=== PATIENT | male | born 1975 ===

== ENCOUNTER 2022-03-19 11:54 | Emergency (ER) | payer OTHER ==
[~2022-03-19] VITALS: Ht 172.7 cm; Wt 97.5 kg
[2022-03-19] MEDS ORDERED: COZAAR25 MG PO (12:09)
[2022-03-19] MEDS ORDERED: SIMVASTATIN40 MG PO (12:09)
[2022-03-19] MEDS ORDERED: ATORVASTATIN CA20 MG PO (12:10)
== END 2022-03-19 14:23 | disposition home or self-care (01) ==
LOC: ER 11:54
DX: S01.81XA Laceration without foreign body of other part of head, initial encounter (principal); W45.8XXA Other foreign body or object entering through skin, initial encounter; Y93.18 Activity, surfing, windsurfing and boogie boarding; Y92.832 Beach as the place of occurrence of the external cause; Y99.9 Unspecified external cause status